=== PATIENT | female | born 1930 | race Hispanic/Latino ===

== ENCOUNTER 2016-09-08 21:49 | Observation (INO) | payer OTHER ==
[2016-09-08 21:50] VITALS: BMI 27.3
[2016-09-08 22:28] LABS: HEMOGLOBIN 13.5 gm/dL (12.0-16.0); MEAN CELL VOLUME 94.8 fL (80.0-105.0); MEAN CORPUSCULAR HEMOGLOBIN 31.9 pg (25.0-35.0); MEAN CORPUSCULAR HGB CONC 33.7 g/dl (31.0-37.0); MEAN PLATELET VOLUME 10.7 fl (7.0-11.0); RBC 4.23 10^6/uL (3.5-6.1); RED CELL DISTRIBUTION WIDTH 14.5 % (11.5-14.5); WHITE BLOOD COUNT 7.9 10^3/ul (4.5-11.0)
[2016-09-08 22:37] LABS: INR 1.05 (0.93-1.08); PARTIAL THROMBOPLASTIN TIME 26.2 Seconds (23.7-30.8); PROTHROMBIN TIME 11.3 Seconds (9.9-11.8)
[2016-09-08 22:40] LABS: ALB/GLOB RATIO 1.4 (1.1-1.8); ALBUMIN 4.2 g/dL (3.0-4.8); CALCIUM 9.3 mg/dL (8.4-10.5)
--- NOTE | 2016-09-08 22:53 | ED PDOC ---
Arrival/HPI - General Time Seen by Provider: 09/08/16 21:51 Historian: Patient - History of Present Illness Narrative History of Present Illness (Text): 09/08/16 21:59 An 86 year old female with a past medical history includes Hypertension, Hyperlipidemia, and Left Renal Artery Aneurysm (w/ Stents), left Cataract surgery, present to the emergency department with right sided/ mid-sternal chest pain. The patient states that she was sitting at home when she began experiencing right-sided chest tightness. She denies any symptoms of shortness of breath, abdominal pain, headache, chills, fever, nausea, vomiting, diarrhea, or any other complaints. Time/Duration: Prior to Arrival Symptom Onset: Gradual Symptom Course: Unchanged Quality: Tightness Activities at Onset: Rest, Light Context: Sitting, Home Past Medical History - Provider Review Nursing Documentation Reviewed: Yes - Infectious Disease Hx of Infectious Diseases: None - Cardiac Hx Hypertension: Yes - HEENT Hx Cataracts: Yes (left eye sx) - Endocrine/Metabolic Hx Hypothyroidism: Yes - Musculoskeletal/Rheumatological Hx Arthritis: Yes (b/l knees) - Gastrointestinal Hx Gastrointestinal Disorders: Yes (diverticulosis) - Genitourinary/Gynecological Other/Comment: Left Renal Stent - Psychiatric Hx Substance Use: No - Surgical History Other/Comment: Left renal stent Family/Social History - Physician Review Nursing Documentation Reviewed: Yes Family/Social History: No Known Family HX Smoking Status: Never Smoked Hx Alcohol Use: No Hx Substance Use: No Allergies/Home Meds Allergies/Adverse Reactions: Allergies Anesthetics - Amide Type Allergy (Verified 04/11/16 09:01) ANAPHYLAXIS Home Medications: Home Meds Medication Instructions Recorded Confirmed Aspirin [Lo-Dose Aspirin EC] 81 mg PO DIN 03/26/16 04/11/16 Cholecalciferol [Vitamin D 1000 IU] 5,000 unit PO DAILY 03/26/16 04/11/16 Levothyroxine [Synthroid] 50 mcg PO DAILY 03/26/16 04/11/16 Meloxicam [Mobic] 15 mg PO DAILY 03/26/16 04/11/16 Ubidecarenone [Co Q-10] 1,000 mg PO DAILY 03/26/16 04/11/16 traMADol [Ultram] 50 mg PO Q6 PRN 03/26/16 04/11/16 Review of Systems - Physician Review All systems were reviewed & negative as marked: Yes - Review of Systems Constitutional: absent: Fevers, Night Sweats Eyes: Normal ENT: Normal Respiratory: absent: SOB Cardiovascular: Chest Pain Gastrointestinal: absent: Abdominal Pain, Diarrhea, Nausea, Vomiting Genitourinary Female: Normal Musculoskeletal: Normal Skin: Normal Neurological: Normal. absent: Headache Hemo/Lymphatic: Normal Psychiatric: Normal Physical Exam Vital Signs Reviewed: Yes Vital Signs Temp Pulse Resp BP Pulse Ox 09/09/16 03:41 57 L 16 149/87 95 09/09/16 00:52 54 L 16 171/85 H 95 09/08/16 21:50 98.9 F 53 L 16 183/79 H 96 Temperature: Afebrile Blood Pressure: Hypertensive Pulse: Regular Respiratory Rate: Normal Appearance: Positive for: Well-Appearing, Non-Toxic Pain Distress: None Mental Status: Positive for: Alert and Oriented X 3 - Systems Exam Head: Present: Atraumatic, Normocephalic Pupils: Present: PERRL Extroacular Muscles: Present: EOMI Mouth: Present: Moist Mucous Membranes Neck: Present: Normal Range of Motion Respiratory/Chest: Present: Clear to Auscultation, Good Air Exchange. No: Respiratory Distress, Accessory Muscle Use Cardiovascular: Present: Regular Rate and Rhythm, Normal S1, S2. No: Murmurs Abdomen: Present: Normal Bowel Sounds. No: Tenderness, Distention, Peritoneal Signs Back: Present: Normal Inspection Upper Extremity: Present: Normal Inspection. No: Cyanosis, Edema Lower Extremity: Present: Normal Inspection. No: Edema Neurological: Present: GCS=15, CN II-XII Intact, Speech Normal Skin: Present: Warm, Dry, Normal Color. No: Rashes Psychiatric: Present: Alert, Oriented x 3, Normal Insight, Normal Concentration Medical Decision Making ED Course and Treatment: 09/08/16 22:05 Impression: An 86 year old male with a complaint of right sided/ mid-sternal chest tightness. Plan: -- EKG -- CXR -- Chest X-ray -- Aspirin -- Reassess and disposition Progress Notes: EKG: Ordered, reviewed, and independently interpreted the EKG. Rate : 58 BPM Rhythm : Sinus bradychardia Interpretation : No acute changes 09/08/16 23:15 Chest X-ray: No acute processes 09/08/16 23:55: Case discussed with Dr. Graff. Who is aware and agrees with plan. Accepts patient into his service. Patient will go to telemetry observation for chest pain. Requests Dr. Curry on consult. - Lab Interpretations Lab Results: 09/08/16 22:10 09/08/16 22:10 Lab Results 09/08/16 22:10: WBC 7.9 D, RBC 4.23, Hgb 13.5, Hct 40.1, MCV 94.8, MCH 31.9, MCHC 33.7, RDW 14.5, Plt Count 125, MPV 10.7 09/08/16 22:10: Sodium 140, Potassium 4.4, Chloride 101, Carbon Dioxide 32, Anion Gap 11, BUN 37 H, Creatinine 1.3, Est GFR ( Amer) 47, Est GFR (Non- Af Amer) 39, Random Glucose 143 H, Calcium 9.3, Total Bilirubin 1.3, AST 38, ALT 41, Alkaline Phosphatase 76, Lactate Dehydrogenase 696, Total Creatine Kinase 81, Troponin I 0.01 D, Total Protein 7.2, Albumin 4.2, Globulin 3.0, Albumin/Globulin Ratio 1.4 09/08/16 22:10: PT 11.3, INR 1.05, APTT 26.2 I have reviewed the lab results: Yes - RAD Interpretation Radiology Orders: 09/08/16 22:06 CHEST PORTABLE [RAD] Stat Transportation Maintenance Operator: ED Physician - EKG Interpretation Interpreted by ED Physician: Yes Type: 12 lead EKG - Medication Orders Current Medication Orders: Discontinued Medications Aspirin (Aspirin) 325 mg PO ONCE STA Stop: 09/08/16 22:08 Last Admin: 09/08/16 22:25 Dose: 325 mg - Scribe Statement Hermelinda Albarado training under Alix Rankin Provider Scribe Attestation: All medical record entries made by the Scribe were at my direction and personally dictated by me. I have reviewed the chart and agree that the record accurately reflects my personal performance of the history, physical exam, medical decision making, and the department course for this patient. I have also personally directed, reviewed, and agree with the discharge instructions and disposition. Disposition/Present on Arrival - Present on Arrival Any Indicators Present on Arrival: No History of DVT/PE: No History of Uncontrolled Diabetes: No Urinary Catheter: No History of Decub. Ulcer: No History Surgical Site Infection Following: None - Disposition Have Diagnosis and Disposition been Completed?: Yes Diagnosis: Chest pain Disposition: HOSPITALIZED Disposition Time: 00:06 Patient Plan: Observation Patient Problems: Current Active Problems Problem Status Onset Chest pain Acute Condition: STABLE
[2016-09-08 22:54] LABS: TROPONIN I 0.01 ng/mL
[2016-09-09 00:53] VITALS: O2SAT 95
[2016-09-09 03:42] VITALS: PULSE 57
[2016-09-09 05:09] VITALS: BP 147/85; RESP 18; TEMP 98.4
[2016-09-09 07:42] LABS: TROPONIN I 0.02 ng/mL
--- NOTE | 2016-09-09 12:00 | RAD ---
HISTORY: chest pain COMPARISON: Prior portable chest radiograph 04/11/2016. FINDINGS: LUNGS: No active pulmonary disease. PLEURA: No significant pleural effusion identified, no pneumothorax apparent. CARDIOVASCULAR: Mild cardiomegaly again suggested. OSSEOUS STRUCTURES: No significant abnormalities. VISUALIZED UPPER ABDOMEN: Normal. OTHER FINDINGS: None. IMPRESSION: No acute cardiopulmonary disease. Stable cardiomegaly noted.
--- NOTE | 2016-09-09 13:45 | CARD ---
APPROVED REPORT EKG Measurement Heart [id number] <Conclusion> Sinus bradycardia Otherwise normal ECG
--- NOTE | 2016-09-10 09:04 | CON ---
DATE: 09/09/2016 CARDIOLOGY CONSULTATION HISTORY OF PRESENT ILLNESS: The patient is an 86-year-old woman who presents with epigastric discomfort after a large spaghetti meal. The patient's past medical history is notable for hypercholesterolemia and hypertension. On her previous admission earlier this year, the patient suffered a non-STEMI, which she underwent cardiac catheterization, which showed a subtotally occluded small AV groove branch of the circumflex artery. In addition, her coronary disease was treated medically. In addition, she suffered from paroxysmal atrial fibrillation, which has been well controlled with low doses of amiodarone. SOCIAL HISTORY: The patient does not smoke. REVIEW OF SYSTEM: A 14 point review of systems was reviewed in detail. No cardiac symptomatology was elicited. PHYSICAL EXAMINATION: VITAL SIGNS: Blood pressure 147/85, heart rate is in the 60s, normal sinus rhythm. NECK: Negative JVD. LUNGS: Without rales. HEART: S1 and S2. EXTREMITIES: Without edema. LABORATORY DATA: EKG shows a left anterior hemiblock, normal sinus rhythm with no acute changes. Troponins are negative. IMPRESSION: 1. Epigastric discomfort. 2. No evidence for acute coronary syndrome. 3. History of coronary artery disease. 4. Hypertension. 5. Hypercholesterolemia. 6. History of paroxysmal atrial fibrillation treated successfully with p.o. amiodarone. Given these findings, the patient has no cardiac symptomatology. The patient's cardiac status is stable. From a cardiac perspective, the patient can be discharged. Jordan Curry MD
== END 2016-09-09 13:25 | disposition home or self-care (01) ==
LOC: ED 21:49 → ERH 09-09 00:06 → 2RNO 09-09 03:52
PROVIDERS: ADMIT Internal Medicine; ATTEND Internal Medicine
DX: R07.89 Other chest pain (principal); I10 Essential (primary) hypertension; I25.10 Atherosclerotic heart disease of native coronary artery without angina pectoris; E78.5 Hyperlipidemia, unspecified; E03.9 Hypothyroidism, unspecified; E78.00 Pure hypercholesterolemia, unspecified; I48.0 Paroxysmal atrial fibrillation; I25.2 Old myocardial infarction; Z98.42 Cataract extraction status, left eye
CPT/HCPCS: 36415; 71010; 80053; 82550; 83615; 84484; 85027; 85610; 85730; 93005; 99285; G0378

== ENCOUNTER 2017-05-28 04:58 | Inpatient (IN) | payer OTHER ==
[2017-05-28] MEDS ORDERED: Sodium Chloride 0.9% 500 ML IV STA (05:12)
[2017-05-28] MEDS ORDERED: Metoprolol 1 mg/ml Inj IVP STA (05:12)
--- NOTE | 2017-05-28 05:35 | ED PDOC ---
Arrival/HPI - General Chief Complaint: Chest Pain Time Seen by Provider: 05/28/17 05:10 Historian: Patient - History of Present Illness Narrative History of Present Illness (Text): 05/28/17 05:31 86 year old female, whose past medical history includes Hypertension, Hyperlipidemia, CAD, and Left Renal Artery Aneurysm (w/ Stents), left Cataract surgery, present to the emergency department complaining of being awaken from sleep by a heaviness across the bottom of her chest. Patient reports she had a mild heart attack last year, but they did not put a stent because the biggest blockage was only 15%. Patient denies any fever, chills, shortness of breath, abdominal pain, nausea, vomiting, diarrhea, urinary symptoms, back pain, neck pain, headache, dizziness, or any other complaints. Time/Duration: Prior to Arrival Symptom Onset: Sudden Symptom Course: Unchanged Activities at Onset: Light Context: Home Past Medical History - Provider Review Nursing Documentation Reviewed: Yes - Infectious Disease Hx of Infectious Diseases: None - Cardiac Hx Hypertension: Yes - Pulmonary Hx Respiratory Disorders: No - HEENT Hx Cataracts: Yes (left eye sx) - Renal Hx Renal Disorder: No - Endocrine/Metabolic Hx Hypothyroidism: Yes - Hematological/Oncological Hx Blood Disorders: No - Musculoskeletal/Rheumatological Hx Arthritis: Yes (b/l knees) - Gastrointestinal Hx Gastrointestinal Disorders: Yes (diverticulosis) - Genitourinary/Gynecological Other/Comment: Left Renal Stent - Psychiatric Hx Substance Use: No - Surgical History Other/Comment: Left renal stent Family/Social History - Physician Review Nursing Documentation Reviewed: Yes Family/Social History: No Known Family HX Smoking Status: Never Smoked Hx Alcohol Use: No Hx Substance Use: No Allergies/Home Meds Allergies/Adverse Reactions: Allergies Anesthetics - Amide Type Allergy (Verified 04/11/16 09:01) ANAPHYLAXIS Home Medications: Home Meds Medication Instructions Recorded Confirmed Aspirin [Lo-Dose Aspirin EC] 81 mg PO DIN 03/26/16 05/28/17 Levothyroxine [Synthroid] 50 mcg PO DAILY 03/26/16 05/28/17 Meloxicam [Mobic] 15 mg PO DAILY 03/26/16 05/28/17 Ubidecarenone [Co Q-10] 1,000 mg PO DAILY 03/26/16 05/28/17 traMADol [Ultram] 50 mg PO Q6 PRN 03/26/16 05/28/17 Cetirizine HCl [Zyrtec] 10 mg PO DAILY PRN 05/28/17 05/28/17 Metoprolol Tartrate [Lopressor] 12.5 mg PO ACBD 05/28/17 05/28/17 Valsartan/Hydrochlorothiazide 1 each PO ACBD 05/28/17 05/28/17 [Valsartan-Hctz 80-12.5 mg Tab] Review of Systems - Physician Review All systems were reviewed & negative as marked: Yes - Review of Systems Constitutional: absent: Fevers, Other Respiratory: absent: SOB Cardiovascular: Other (Chest Heaviness ) Gastrointestinal: absent: Abdominal Pain, Diarrhea, Nausea, Vomiting Genitourinary Female: absent: Dysuria, Frequency, Hematuria Musculoskeletal: absent: Back Pain, Neck Pain Neurological: absent: Headache, Dizziness Physical Exam Vital Signs Reviewed: Yes Vital Signs Temp Pulse Resp BP Pulse Ox 05/28/17 10:20 83 20 158/84 H 97 05/28/17 08:43 88 19 185/94 H 97 05/28/17 07:04 64 22 148/77 98 05/28/17 05:08 97.3 F L 57 L 18 121/67 97 Temperature: Afebrile Blood Pressure: Normal Pulse: Regular Respiratory Rate: Normal Appearance: Positive for: Well-Appearing, Non-Toxic, Comfortable Pain Distress: None Mental Status: Positive for: Alert and Oriented X 3 - Systems Exam Head: Present: Atraumatic, Normocephalic Pupils: Present: PERRL Extroacular Muscles: Present: EOMI Conjunctiva: Present: Normal Mouth: Present: Moist Mucous Membranes Neck: Present: Normal Range of Motion Respiratory/Chest: Present: Clear to Auscultation, Good Air Exchange. No: Respiratory Distress, Accessory Muscle Use Cardiovascular: Present: Regular Rate and Rhythm, Normal S1, S2. No: Murmurs Abdomen: No: Tenderness, Distention, Peritoneal Signs Back: Present: Normal Inspection Upper Extremity: Present: Normal Inspection. No: Cyanosis, Edema Lower Extremity: Present: Normal Inspection. No: Edema Neurological: Present: GCS=15, CN II-XII Intact, Speech Normal Skin: Present: Warm, Dry, Normal Color. No: Rashes Psychiatric: Present: Alert, Oriented x 3, Normal Insight, Normal Concentration Medical Decision Making ED Course and Treatment: 05/28/17 05:33 Impression: 86 year old female presents complaining of waking up from a heaviness across the bottom of chest. Plan: -- Labs -- EKG -- Chest X-Ray -- Aspirin, Lopressor, Nitrostat, IV fluids -- Reassess and disposition Prior Visits: Notes and results from previous visits were reviewed. On 09/08/16 patient came in complaining of right sided/ mid-sternal chest pain. Patient was admitted. Progress Notes: 05/28/17 06:20 CXR Impression: As read by me, NAD EKG: Ordered, reviewed, and independently interpreted the EKG. Rate : 55 BPM Rhythm : Sinus Bradycardia Interpretation : No ST-segment elevations or depressions, no T-wave inversions, normal intervals. Comparison : No previous EKG for comparison. 05/28/17 06:[address] Jayden Graff who is aware and agrees with the plan. Patient will be admitted to Dr. Joshua Graff with consult Dr. Humphrey. 05/28/17 07:00 Patient concerned pain is coming from stent located in inferrenal artery. Told patient pain is likely not chest pain, but instead flank pain and abdominal pain. Also informed patient will be ordering US for Abdomen and CT Angio Abdomen. - Lab Interpretations Lab Results: 05/28/17 05:43 05/28/17 05:43 Lab Results 05/28/17 05:43: Sodium 141, Potassium 4.1, Chloride 101, Carbon Dioxide 29, Anion Gap 15, BUN 29 H, Creatinine 1.0, Est GFR ( Amer) > 60, Est GFR ( Non-Af Amer) 53, Random Glucose 186 H, Calcium 9.0, Total Bilirubin 1.1, AST 35 , ALT 31, Alkaline Phosphatase 73, Lactate Dehydrogenase 619, Total Creatine Kinase 92, Troponin I 0.02, NT-Pro-B Natriuret Pep 465 H, Total Protein 6.7, Albumin 3.9, Globulin 2.8, Albumin/Globulin Ratio 1.4 05/28/17 05:43: PT 12.4, INR 1.08 05/28/17 05:43: WBC 8.7, RBC 4.04, Hgb 12.7, Hct 39.0, MCV 96.5, MCH 31.4, MCHC 32.6, RDW 12.5, Plt Count 165, MPV 10.4, Gran % 68.9 H, Lymph % (Auto) 24.3, Rich % (Auto) 5.0, Eos % (Auto) 1.5, Baso % (Auto) 0.3, Gran # 5.97, Lymph # ( Auto) 2.1, Rich # (Auto) 0.4, Eos # (Auto) 0.1, Baso # (Auto) 0.03 I have reviewed the lab results: Yes - RAD Interpretation Radiology Orders: 05/28/17 05:12 CHEST PORTABLE [RAD] Stat - EKG Interpretation Interpreted by ED Physician: Yes Type: 12 lead EKG - Medication Orders Current Medication Orders: Discontinued Medications Acetaminophen (Tylenol 325mg Tab) 650 mg PO Q6H PRN PRN Reason: Fever >100.4 F Last Admin: 05/29/17 05:51 Dose: 650 mg [facility] Pain/Vitals Document 05/29/17 05:51 CDE (Rec: 05/29/17 05:51 CDE [id number]) Pain Reassessment Is This A Pain ReAssessment? No Presence of Pain Presence of Pain No Vitals Temperature (97.6 F-99.6 F) 100.4 F Temperature Source Oral Acetaminophen (Tylenol 325mg Tab) 650 mg PO Q6 PRN PRN Reason: Pain, Mild (1-3) Last Admin: 05/29/17 14:24 Dose: 650 mg [facility] Pain/Vitals Document 05/29/17 14:24 (Rec: 05/29/17 14:25 [id number] Pain Reassessment Is This A Pain ReAssessment? No Sleep Is patient sleeping during reassessment? No Presence of Pain Presence of Pain Yes Pain Scale Used Pain Scale Used Numeric Location Pain Location Body Shed Boss Intensity 3 Scale Used Numeric Pain Behavior Guarding Re-Assess: [facility] Pain/Vitals Document 05/29/17 15:24 (Rec: 05/29/17 15:27 [id number][facility] Pain Reassessment Is This A Pain ReAssessment? Yes Sleep Is patient sleeping during reassessment? No Presence of Pain Presence of Pain Yes Pain Scale Used Pain Scale Used Numeric Location Pain Location Body Shed Boss Intensity 1 Scale Used Numeric Amiodarone HCl (Cordarone) 200 mg PO ONCE ONE Stop: 05/28/17 12:16 Last Admin: 05/28/17 12:23 Dose: Not Given Non-Admin Reason: Patient Refused Aspirin (Ecotrin) 81 mg PO DAILY [facility] Last Admin: 05/31/17 11:16 Dose: 81 mg Atorvastatin Calcium (Lipitor) 20 mg PO DIN [facility] Last Admin: 05/28/17 16:53 Dose: 20 mg Atorvastatin Calcium (Lipitor) 10 mg PO DIN [facility] Last Admin: 05/30/17 17:23 Dose: 10 mg Hydrochlorothiazide (Microzide) 12.5 mg PO ACBD [facility] Last Admin: 05/31/17 08:56 Dose: 12.5 mg Sodium Chloride (Sodium Chloride 0.9%) 500 mls @ 999 mls/hr IV .Q31M STA Stop: 05/28/17 05:42 Last Admin: 05/28/17 06:09 Dose: 999 mls/hr eMAR Start Stop Document 05/28/17 06:09 SS (Rec: 05/28/17 06:09 SS [facility]-[id number]) Intravenous Solution Start Date 05/28/17 Start Time 06:09 End Date 05/28/17 End time 06:39 Total Infusion Time 30 Ceftriaxone Sodium (Rocephin 1 Gram Ivpb) 1 gm in 100 mls @ 100 mls/hr IV DAILY [facility] PRN Reason: Protocol Stop: 06/01/17 10:59 Last Admin: 05/31/17 11:17 Dose: 100 mls/hr eMAR Start Stop Document 05/31/17 11:17 MV (Rec: 05/31/17 11:17 [email or web address]) Intravenous Solution Start Date 05/31/17 Start Time 11:17 Sodium Chloride (Sodium Chloride 0.9%) 1,000 mls @ 100 mls/hr IV .Q10H [facility] Last Admin: 05/30/17 13:30 Dose: 100 mls/hr eMAR Start Stop Document 05/30/17 13:30 KL (Rec: 05/30/17 13:30 KL [id number]) Intravenous Solution Start Date 05/30/17 Start Time 13:30 Lactobacillus Acidophilus (Bacid Acidophilus) 1 cap PO BID [facility] Last Admin: 05/31/17 11:16 Dose: 1 cap Levothyroxine Sodium (Synthroid) 50 mcg PO DAILY [facility] Last Admin: 05/31/17 11:16 Dose: 50 mcg Lisinopril (Zestril) 5 mg PO DAILY [facility] Last Admin: 05/28/17 12:22 Dose: Not Given Non-Admin Reason: Patient Refused Losartan Potassium (Cozaar) 50 mg PO ACBD [facility] Last Admin: 05/31/17 08:57 Dose: 50 mg Metoprolol Tartrate (Lopressor) 5 mg IVP STAT STA Stop: 05/28/17 05:13 Last Admin: 05/28/17 06:27 Dose: Metoprolol Tartrate (Lopressor) 25 mg PO ONCE ONE Stop: 05/28/17 12:04 Last Admin: 05/28/17 12:20 Dose: 12.5 mg Comments: patient states she only takes 12.5mg 2x/day; refuses 25mg tablet of lopressor and requests 12.5mg and administered MAR Pulse and Blood Pressure Document 05/28/17 12:20 AAMIR (Rec: 05/28/17 12:21 AAMIR [id number]) Pulse Pulse Rate (60-90) 94 Blood Pressure Blood Pressure (100/60-150/90) 167/89 Metoprol[facility]) [facility] Last Admin: 05/31/17 08:56 Dose: 12.5 mg MAR Pulse and Blood Pressure Document 05/31/17 08:56 MV (Rec: 05/31/17 08:57 [email or web address]) Pulse Pulse Rate (60-90) 73 Blood Pressure Blood Pressure (100/60-150/90) 156/76 Morphine Sulfate (Morphine) 2 mg IVP STAT STA Stop: 05/28/17 05:50 Last Admin: 05/28/17 06:09 Dose: 2 mg MAR Pain Assessment Document 05/28/17 06:09 SS (Rec: 05/28/17 06:09 [id number][facility] Pain Reassessment Is this a pain reassessment? No Sleep Is patient sleeping during reassessment? No Presence of Pain Presence of Pain Yes Pain Scale Used Pain Scale Used Numeric Location Left, Right or Bilateral Left Pain Location Body Site Chest Description Description Constant Pain Behavior Moaning Restlessness IVP Administration Document 05/28/17 06:09 SS (Rec: 05/28/17 06:09 [id number][facility] Charges for Administration # of IVP Administrations 1 Morphine Sulfate (Morphine) 2 mg IVP STAT STA Stop: 05/28/17 06:14 Last Admin: 05/28/17 06:27 Dose: 2 mg MAR Pain Assessment Document 05/28/17 06:27 SS (Rec: 05/28/17 06:27 [id number]) Pain Reassessment Is this a pain reassessment? Yes Sleep Is patient sleeping during reassessment? No Presence of Pain Presence of Pain Yes Pain Scale Used Pain Scale Used Numeric Location Left, Right or Bilateral Left Pain Location Body Site Chest Description Description Pressure IVP Administration Document 05/28/17 06:27 SS (Rec: 05/28/17 06:27 SS [id number]) Charges for Administration # of IVP Administrations 1 Morphine Sulfate (Morphine) 4 mg IVP STAT STA Stop: 05/28/17 06:48 Last Admin: 05/28/17 07:00 Dose: 4 mg MAR Pain Assessment Document 05/28/17 07:00 SS (Rec: 05/28/17 07:00 SS [id number]) Pain Reassessment Is this a pain reassessment? Yes Sleep Is patient sleeping during reassessment? No Presence of Pain Presence of Pain Yes Pain Scale Used Pain Scale Used Numeric Location Left, Right or Bilateral Left Pain Location Body Site Chest Description Description Pressure Intensity of Pain at present 8 IVP Administration Document 05/28/17 07:00 SS (Rec: 05/28/17 07:00 [id number]) Charges for Administration # of IVP Administrations 1 Ondansetron HCl (Zofran Inj) 4 mg IVP STAT STA Stop: 05/28/17 05:50 Last Admin: 05/28/17 06:06 Dose: 4 mg IVP Administration Document 05/28/17 06:06 SS (Rec: 05/28/17 06:08 SS [id number]) Charges for Administration # of IVP Administrations 1 Ondansetron HCl (Zofran Inj) 4 mg IVP Q6H PRN PRN Reason: Nausea/Vomiting Pantoprazole Sodium (Protonix Ec Tab) 40 mg PO 0600 FLORIDALMA Pantoprazole Sodium (Protonix Inj) 40 mg IVP STAT STA Stop: 05/28/17 11:51 Last Admin: 05/28/17 12:14 Dose: 40 mg IVP Administration Document 05/28/17 12:14 AAMIR (Rec: 05/28/17 12:14 AAMIR [id number]) Charges for Administration # of IVP Administrations 1 Pantoprazole Sodium (Protonix Inj) 40 mg IVP DAILY [facility] Last Admin: 05/29/17 10:46 Dose: 40 mg IVP Administration Document 05/29/17 10:46 ENRRIQUE (Rec: 05/29/17 10:46 ENRRIQUE [id number]) Charges for Administration # of IVP Administrations 1 Pantoprazole Sodium (Protonix Ec Tab) 40 mg PO ACB [facility] Last Admin: 05/31/17 08:57 Dose: 40 mg Pneumococcal Polyvalent Vaccine (Pneumovax 23 Vaccine) 0.5 ml IM .ONCE ONE Stop: 05/28/17 13:30 Last Admin: 05/28/17 13:39 Dose: Immunization Registry Document 05/28/17 13:39 AAMIR (Rec: 05/28/17 13:39 AAMIR [id number]) Immunization Registry Consent Date 05/28/17 Potassium Chloride (K-Dur 20 Meq Er Tab) 40 meq PO ONCE ONE Stop: 05/29/17 09:05 Last Admin: 05/29/17 10:45 Dose: 40 meq Simethicone (Mylicon Liq) 40 mg PO QID PRN PRN Reason: abd.pain Stop: 05/29/17 23:59 Last Admin: 05/29/17 13:56 Dose: 1 dose Tramadol HCl (Ultram) 50 mg PO TID [facility] Last Admin: 05/31/17 09:00 Dose: 50 mg MAR Pain Assessment Document 05/31/17 09:00 MV (Rec: 05/31/17 09:01 MV [id number]) Pain Reassessment Is this a pain reassessment? No Sleep Is patient sleeping during reassessment? Yes Pain Scale Used Pain Scale Used Numeric Location Left, Right or Bilateral Bilateral Pain Location Body Site Knee - Scribe Statement The provider has reviewed the documentation as recorded by the Jacob Hogue Provider Scribe Attestation: All medical record entries made by the Jacob were at my direction and personally dictated by me. I have reviewed the chart and agree that the record accurately reflects my personal performance of the history, physical exam, medical decision making, and the department course for this patient. I have also personally directed, reviewed, and agree with the discharge instructions and disposition. Disposition/Present on Arrival - Present on Arrival Any Indicators Present on Arrival: No History of DVT/PE: No History of Uncontrolled Diabetes: No Urinary Catheter: No History of Decub. Ulcer: No History Surgical Site Infection Following: None - Disposition Have Diagnosis and Disposition been Completed?: Yes Diagnosis: Chest pain Disposition: HOSPITALIZED Disposition Time: 23:00 Patient Plan: Admission, Telemetry Condition: GOOD
[2017-05-28 05:59] LABS: BASO # 0.03 K/mm3 (0.0-2.0); BASO % 0.3 % (0.0-3.0); EOS # 0.1 (0.0-0.7); EOS % 1.5 % (1.5-5.0); GRAN # 5.97 (1.4-6.5); GRAN % 68.9 % (50.0-68.0); HEMOGLOBIN 12.7 g/dL (12.0-16.0); LYMPH # 2.1 (1.2-3.4); LYMPH % 24.3 % (22.0-35.0); MEAN CELL VOLUME 96.5 fl (80.0-105.0); MEAN CORPUSCULAR HEMOGLOBIN 31.4 pg (25.0-35.0); MEAN CORPUSCULAR HGB CONC 32.6 g/dl (31.0-37.0); MEAN PLATELET VOLUME 10.4 fl (7.0-11.0); MONO # 0.4 (0.1-0.6); RBC 4.04 10^6/uL (3.5-6.1); RED CELL DISTRIBUTION WIDTH 12.5 % (11.5-14.5); WHITE BLOOD COUNT 8.7 10^3/ul (4.5-11.0)
[2017-05-28 06:10] LABS: PROTHROMBIN TIME 12.4 SECONDS (9.4-12.5)
[2017-05-28 06:11] LABS: INR 1.08 (0.93-1.08)
[2017-05-28 06:24] LABS: ALB/GLOB RATIO 1.4 (1.1-1.8); ALBUMIN 3.9 g/dL (3.0-4.8); ALT/SGPT 31 U/L (7-56); AST/SGOT 35 U/L (14-36); BLOOD UREA NITROGEN 29 mg/dL (7-21); GFR AFRICAN-AMERICAN > 60; GFR NON-AFRICAN AMERICAN 53
[2017-05-28 06:29] LABS: B-TYPE NATRIURETIC PEPTIDE 465 pg/mL (0-450); TROPONIN I 0.02 ng/mL
--- NOTE | 2017-05-28 08:37 | RAD ---
HISTORY: Chest pain COMPARISON: 09/08/2016. FINDINGS: LUNGS: The lungs are hyperinflated and there is peribronchial thickening with chronic changes in both lungs. No focal consolidation. PLEURA: No significant pleural effusion identified, no pneumothorax apparent. CARDIOVASCULAR: The heart is normal in size. Atherosclerotic aortic arch calcifications are present. OSSEOUS STRUCTURES: No significant abnormalities. VISUALIZED UPPER ABDOMEN: Normal. OTHER FINDINGS: None. IMPRESSION: No active pulmonary disease. COPD.
--- NOTE | 2017-05-28 08:47 | US ---
HISTORY: Questionable gallstone COMPARISON: Correlation also made with concurrent CTA of the chest which imaged the upper abdomen TECHNIQUE: Sonographic evaluation of the abdomen. FINDINGS: LIVER: The liver measures nearly 17 cm in CC dimension. Liver demonstrates smooth contour and normal echogenicity of the liver parenchyma. . There is an approximately 2 x 1.7 x 2.0 cm low-attenuation apparent cyst anterior aspect left lobe liver. . Smaller approximately 8 mm presumed cyst superior aspect left lobe liver near the diaphragmatic dome not visualized. . No intrahepatic bile duct dilatation. GALLBLADDER: The gallbladder is moderately distended. Multiple intraluminal gallbladder calculi. COMMON BILE DUCT: Measures 5.6 mm. No stones. No dilatation. PANCREAS: Unremarkable as visualized. No mass. No ductal dilatation. RIGHT KIDNEY: Measures 11.0 x 4.4 x 5.8cm. Normal echogenicity. No calculus, mass, or hydronephrosis. LEFT KIDNEY: Measures 9.6 x 5.2 x 5.3cm. Normal echogenicity. No mass, or hydronephrosis. 1 cm nonobstructing calculus lower pole left kidney SPLEEN: Normal in size and contour. No mass. AORTA: No aneurysmal dilatation. IVC: Unremarkable. OTHER FINDINGS: None. IMPRESSION: Hepatic cysts as described. 1 cm nonobstructing calculus lower pole left kidney.
--- NOTE | 2017-05-28 09:54 | CT ---
PROCEDURE: CT Chest, Abdomen and Pelvis with intravenous contrast HISTORY: Infrarenal stent, abdominal pain COMPARISON: No prior study available for comparison. TECHNIQUE: IV dose administered: 150 cc Omnipaque 350 contrast material Radiation dose: Total exam DLP = 796.31 mGy-cm. This CT exam was performed using one or more of the following dose reduction techniques: Automated exposure control, adjustment of the mA and/or kV according to patient size, and/or use of iterative reconstruction technique. FINDINGS: CT CHEST WITH CONTRAST: LUNGS: No acute infiltrates. There are areas of atelectasis/ scarring changes both lower lung rosales, left greater than right. Localized area of tree-in-bud opacity seen in the right lower lobe. No acute consolidation. Mild biapical pleural thickening right greater than left. . MEDIASTINUM: Heart is enlarged. There is mild dilatation of the ascending thoracic aorta which measures approximately 4.0 cm. Descending thoracic aorta measures approximately 2.8 cm. Pulmonary trunk measures approximately 3.5 cm. There is a small hiatal hernia with wall thickening of the distal esophagus which could be due to protrusion gastric mucosa. Esophagitis or other intrinsic/invasive wall lesion including esophageal carcinoma not completely excluded. Followup endoscopy may be prudent. LYMPH NODES: There are a few small nonspecific mediastinal and hilar lymph nodes. PLEURA: No effusion or pneumothorax. BONES: Multilevel degenerative spondylosis of the thoracic spine. No acute compression fractures no retropulsed fragments. Chronic appearing endplate deformities of the T7 and T12 segments. OTHER FINDINGS: None. CT ABDOMEN AND PELVIS: LIVER: The liver exhibits normal size measuring approximately 14 cm in CC dimension. There is a any elliptical shaped approximately 2 cm x 1.3 cm cyst left lobe liver at anterior aspect left lobe liver bordering the fissure. In addition, there is a small approximately 8 mm elliptical shaped low-attenuation focus superior aspect left lobe liver bordering the diaphragmatic surface also felt to represent a cyst. GALLBLADDER AND BILE DUCTS: Gallbladder is moderately distended. Multiple intraluminal gallbladder calculi. PANCREAS: The pancreas appears slightly atrophic and fatty replaced. SPLEEN: Questionable calcified aneurysmal dilatation of the splenic artery ADRENALS: No obvious right adrenal lesion. Questionable enlarged left adrenal gland. KIDNEYS AND URETERS: There is an approximately 6.3 mm elliptical shaped nonobstructing calculus lower pole left kidney. 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 . The metallic density results in significant streak and beam hardening artifact obscuring surrounding fine detail. Significant streak and beam hardening artifact BOWEL: Evaluation of the bowel is limited due to the lack of oral contrast material. Stomach is incompletely distended. Visualized loops of small bowel exhibit normal contour and caliber. No evidence of acute mechanical small bowel obstruction. Extensive diverticulosis. No definitive radiographic evidence of acute diverticulitis. There is a large amount of stool within the rectum consistent with significant constipation/ fecal impaction. APPENDIX: Normal-appearing appendix best seen on coronal image number [id number]. PERITONEUM: Unremarkable. No free fluid. No free air. LYMPH NODES: Unremarkable. No enlarged lymph nodes. BLADDER: Urinary bladder incompletely distended. No evidence of intraluminal urinary bladder calculi. REPRODUCTIVE: Unremarkable. BONES: Multilevel degenerative spondylosis of the lumbar spine slight anterior subluxation L4 over L5. OTHER FINDINGS: None. IMPRESSION: Cardiomegaly prominence of the pulmonary trunk. Bibasilar atelectasis/scarring of. Small localized area tree-in-bud opacity right lower lobe laterally. Biapical pleural thickening right greater than left. 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 Hepatic cysts. . Nonobstructing calculus lower pole left kidney. Cholelithiasis. Small hiatal hernia with wall thickening of the distal esophagus likely due to protrusion of gastric mucosa however esophagitis or other intrinsic/invasive wall lesion not excluded. Diverticulosis with no radiographic evidence of acute diverticulitis. Fecal impaction. Questionable enlarged left adrenal gland.
[2017-05-28] MEDS ORDERED: Simethicone 40 mg/0.6 ml Liquid (30 ml) PO PRN (11:52)
[2017-05-28 12:24] LABS: TROPONIN I 0.03 ng/mL
[2017-05-28 13:28] VITALS: BMI 26.6
[2017-05-28] MEDS ORDERED: Pneumococcal 23-Valent Vaccine IM ONE (13:29)
[2017-05-28] MEDS ORDERED: Levothyroxine 100 MCG TAB PO SCH (18:00)
[2017-05-28] MEDS: cefTRIAXone 1 gm 1 GM/100 ML BAG IV SCH (18:40)
[2017-05-28] MEDS: Sodium Chloride 0.9% 1,000 ML IV SCH (18:41)
[2017-05-28 20:29] LABS: TROPONIN I 0.1 ng/mL
--- NOTE | 2017-05-28 21:33 | CARD ---
APPROVED REPORT EKG Measurement Heart [id number] <Conclusion> Sinus bradycardia Otherwise normal ECG
--- NOTE | 2017-05-28 23:30 | CON ---
DATE: 05/28/2017 REASON FOR CONSULTATION: Cardiac evaluation, admitted with chest pain. BRIEF CLINICAL HISTORY: This is an 86-year-old female with past medical history of significant for nonobstructive coronary artery disease; paroxysmal atrial fibrillation, status post cardiac catheterization by Dr. Curry on found to be nonobstructive coronary artery disease. The patient initially followed by Dr. 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 with pain occurred on the lower chest and then later on the patient found to be spread all over the abdomen, and started dry heave and nausea. Denies any further episode of chest pain. The patient had normal meal last night, but was feeling two days' abdominal pain as well. PAST HISTORY: Significant for questionable history of non-STEMI; history of cardiac catheterization and on 04/2016, medical treatment recommended; history of paroxysmal atrial fibrillation in 08/2016. PREVIOUS CARDIAC WORKUP: Patient had a cardiac catheterization on 03/27/2016, done by Dr. Curry that revealed no gradient across the aortic valve. Left ventriculogram showed ejection fraction of 65% done in WALLER projection. No aortic insufficiency noted. Coronary angiogram revealed dominant right coronary artery without any critical stenosis. Left main selectively cannulized with normal limit. LAD diagonal revealed a minimal intimal irregularity without any critical stenosis. Circumflex and obtuse marginal branch revealed diffuse arteriosclerosis without critical disease. A small AV groove branch was subtotally occluded, this may be responsible for elevated troponin versus too small for intervention. Medical treatment recommended dated 03/26/2016. Then, patient admitted with paroxysmal atrial fibrillation. Other cardiac workup shows the carotid artery ultrasound dated 04/12/2016, shows bilateral ICA 20 to 39 % stenosis. Patient had also echocardiography done on 04/12/2016, that revealed normal LV function, ejection fraction within the normal limits, no segmental wall motion abnormality, RV systolic pressure of 40, mild mitral regurgitation. REVIEW OF SYSTEMS: As per HPI. CURRENT MEDICATIONS: Patient at home was taking vitamin D, aspirin, amiodarone, tramadol, simvastatin, metoprolol 25 b.i.d., meloxicam, lisinopril 5 mg, 50 mg daily. PHYSICAL EXAMINATION: VITAL SIGNS: Temperature afebrile, heart rate 57, blood pressure 158/84. HEENT: PERRLA, intact. NECK: Supple. No carotid bruit or thyromegaly. CHEST: Clear to auscultation. HEART: S1 and S2, regular. ABDOMEN: Soft. EXTREMITIES: Clubbing and cyanosis negative. LABORATORY DATA: Blood workup as follows: WBC 8.7, hemoglobin 12.3, hematocrit 39, and platelet count 10.4. Chemistry shows sodium , chloride 101, carbon dioxide 29, anion gap of 15. BUN 29, creatinine 1. Troponin is 0.02. EKG shows normal sinus rhythm, acute ST-T wave changes noted. IMPRESSION: Chest pain and abdominal pain, most likely this is secondary to abdominal pain; history of coronary artery disease, nonobstructive with small AV groove branch occluded that was very small for intervention; history of cardiac catheterization on 03/[address] Curry. The patient used to follow with Dr. Curry because of the insurance status. 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 Curry, so patient is followed now me. He does not appear to have acute coronary syndrome, most likely the GI symptoms; history of paroxysmal atrial fibrillation; history of obesity; history of hyperthyroidism. RECOMMENDATION: We will resume medication. Follow up CPK and troponin. Suggest ultrasound of the abdomen, CAT scan of the abdomen. Echo to assess LV function, lipid profile, TSH, monitor in telemetry. We will follow with you. Thank you Dr. Graff for providing me the opportunity in taking care of Delores Gaspar. Kiara Humphrey MD
[2017-05-29] MEDS: Sodium Chloride 0.9% 1,000 ML IV SCH ×2 (05:50→16:34)
[2017-05-29] MEDS ORDERED: Pantoprazole 40 mg EC Tab PO SCH (06:00)
[2017-05-29 07:13] LABS: BASO # 0.02 K/mm3 (0.0-2.0); BASO % 0.2 % (0.0-3.0); EOS % 0.4 % (1.5-5.0); GRAN # 8.94 (1.4-6.5); GRAN % 78.7 % (50.0-68.0); HEMOGLOBIN 12.5 g/dL (12.0-16.0); LYMPH # 1.1 (1.2-3.4); MEAN CELL VOLUME 95.6 fl (80.0-105.0); MEAN CORPUSCULAR HEMOGLOBIN 32.1 pg (25.0-35.0); MEAN CORPUSCULAR HGB CONC 33.5 g/dl (31.0-37.0); MEAN PLATELET VOLUME 9.9 fl (7.0-11.0); MONO # 1.2 (0.1-0.6); MONO % 10.7 % (1.0-6.0); RBC 3.9 10^6/uL (3.5-6.1); RED CELL DISTRIBUTION WIDTH 12.7 % (11.5-14.5); WHITE BLOOD COUNT 11.4 10^3/ul (4.5-11.0)
--- NOTE | 2017-05-29 07:36 | CP.PCM.PN ---
Subjective - Date & Time of Evaluation Date of Evaluation: 05/29/17 Time of Evaluation: 07:00 - Subjective Subjective: Seen and examined by me and Dr. Humphrey Reason for consult and follow up: Cardiac evaluation,chest pain, cardiac cath 2016- non-obstructive coronary artery disease, Paroxysmal atrial fibrillation, questionable history of non- STEMI, history of obesity,history of hyperthyroidism Subjective: denies chest pain, denies shortness of breath, feeling better Objective - Vital Signs/Intake and Output Vital Signs (last 24 hours): Temp Pulse Resp BP Pulse Ox 100.4 F H 67 18 155/76 H 94 L 05/29/17 06:00 05/29/17 06:00 05/29/17 06:00 05/29/17 06:00 05/29/17 06:00 Intake and Output: 05/29/17 05/29/17 06:59 18:59 Intake Total 1320 Output Total 200 Balance 1120 - Medications Medications: Current Medications Acetaminophen (Tylenol 325mg Tab) 650 mg PO Q6H PRN PRN Reason: Fever >100.4 F Last Admin: 05/29/17 05:51 Dose: 650 mg Aspirin (Ecotrin) 81 mg PO DAILY [facility] Atorvastatin Calcium (Lipitor) 10 mg PO DIN [facility] Hydrochlorothiazide (Microzide) 12.5 mg PO ACBD [facility] Last Admin: 05/28/17 16:54 Dose: 12.5 mg Ceftriaxone Sodium (Rocephin 1 Gram Ivpb) 1 gm in 100 mls @ 100 mls/hr IV DAILY [facility] PRN Reason: Protocol Last Admin: 05/28/17 18:40 Dose: 100 mls/hr Sodium Chloride (Sodium Chloride 0.9%) 1,000 mls @ 100 mls/hr IV .Q10H [facility] Last Admin: 05/29/17 05:50 Dose: 100 mls/hr Levothyroxine Sodium (Synthroid) 50 mcg PO DAILY [facility] Losartan Potassium (Cozaar) 50 mg PO ACBD [facility] Last Admin: 05/28/17 16:53 Dose: 50 mg Metoprolol Tartrate (Lopressor) 12.5 mg PO BRKDIN [facility] Last Admin: 05/28/17 16:53 Dose: 12.5 mg Ondansetron HCl (Zofran Inj) 4 mg IVP Q6H PRN PRN Reason: Nausea/Vomiting Pantoprazole Sodium (Protonix Inj) 40 mg IVP DAILY [facility] Last Admin: 05/28/17 18:05 Dose: Not Given Simethicone (Mylicon Liq) 40 mg PO QID PRN PRN Reason: abd.pain Stop: 05/29/17 23:59 Tramadol HCl (Ultram) 50 mg PO TID [facility] Last Admin: 05/28/17 23:13 Dose: 50 mg - Labs Labs: 05/29/17 07:00 PT 12.4 SECONDS (9.4-12.5) 05/28/17 05:43 INR 1.08 (0.93-1.08) 05/28/17 05:43 - Constitutional Appears: No Acute Distress - Head Exam Head Exam: NORMAL INSPECTION - Eye Exam Eye Exam: Normal appearance - ENT Exam ENT Exam: Mucous Membranes Moist, Normal Exam - Respiratory Exam Respiratory Exam: Clear to Ausculation Bilateral, NORMAL BREATHING PATTERN - Cardiovascular Exam Cardiovascular Exam: Irregular Rhythm, +S1, +S2 - GI/Abdominal Exam GI & Abdominal Exam: Soft, Normal Bowel Sounds - Extremities Exam Extremities Exam: Full ROM, Normal Capillary Refill - Neurological Exam Neurological Exam: Alert, Awake, Oriented x3 - Psychiatric Exam Psychiatric exam: Normal Affect, Normal Mood - Skin Skin Exam: Dry, Intact, Normal Color, Warm Assessment and Plan - Assessment and Plan (Free Text) Assessment: IMPRESSION: Chest pain most likely secondary to abdominal pain. cardiac cath 2016- non-obstructive coronary artery disease, Paroxysmal atrial fibrillation, questionable history of non- STEMI, history of obesity,history of hyperthyroidism. Former patient of Dr. Curry however due to insurance issues/ coverage ( Dr. Curry does not participate in her insurance) switch to Dr. Humphrey. Plan: EKG from yesterday- sinus bradycardia at 55/min Troponin negative x 3 Denies chest pain Ultrasound of abdomen showed moderately distended gallbladder, multiple intraluminal gallbladder calculi, left kidney 1 cm non obstructing calculus lower pole. ECHO pending final result, will follow Continue current medication Continue current treatment Will follow up Plan and treatment discussed with Dr. Humphrey
[2017-05-29 07:40] LABS: ALB/GLOB RATIO 1.3 (1.1-1.8); ALBUMIN 3.5 g/dL (3.0-4.8); ALT/SGPT 30 U/L (7-56); AMYLASE 39 U/L (35-125); AST/SGOT 31 U/L (14-36); BLOOD UREA NITROGEN 19 mg/dL (7-21); CALCIUM 8.5 mg/dL (8.4-10.5); GFR AFRICAN-AMERICAN > 60; GFR NON-AFRICAN AMERICAN 60; HDL CHOLESTEROL 51 mg/dL (29-60)
[2017-05-29 07:47] LABS: LDL CHOLESTEROL 63 mg/dL (0-129)
[2017-05-29] MEDS ORDERED: Potassium Chloride 20 mEq ER Tab PO ONE (09:04)
[2017-05-29] MEDS: Levothyroxine 50 MCG TAB PO SCH (10:45)
[2017-05-29] MEDS: cefTRIAXone 1 gm 1 GM/100 ML BAG IV SCH (10:47)
--- NOTE | 2017-05-29 17:06 | CARD ---
APPROVED REPORT EXAM: Two-dimensional and M-mode echocardiogram with Doppler and color Doppler. INDICATION Chest Pain 2D DIMENSIONS Left Atrium (2D)4.1 (1.6-4.0cm)IVSd1.3 (0.7-1.1cm) LVDd3.9 (3.9-5.9cm)PWd1.4 (0.7-1.1cm) LVDs2.7 (2.5-4.0cm)FS (%) 31.0 % LVEF (%)59.3 (>50%) M-Mode DIMENSIONS Aortic Root2.90 (2.2-3.7cm)Aortic Cusp Exc.1.30 (1.5-2.0cm) Aortic Valve AoV Peak Lohfmjvs382.0cm/Michelle Peak GR.7mmHg Mitral Valve MV E Fueudunw00.5cm/sMV A Hbcernji01.7cm/sE/A ratio0.7 TDI E/Lateral E'0.0E/Medial E'0.0 Tricuspid Valve TR Peak [id number]/sRAP [id number] Peak Gr.17mmHg [id number] LEFT VENTRICLE The left ventricle is normal size. There is mild concentric left ventricular hypertrophy. The left ventricular function is normal.EF-55-60% There is normal LV segmental wall motion. Transmitral Doppler flow pattern is Grade III-reversible restrictive diastolic dysfunction. No left ventricle thrombus noted on this study. There is no ventricular septal defect visualized. There is no left ventricular aneurysm. There is no mass noted in the left ventricle. ATRIA The left atrium is borderline dilated. The right atrium size is normal. The interatrial septum is intact with no evidence for an atrial septal defect. AORTIC VALVE The aortic valve is calcified but opens well. There is trace aortic regurgitation. Aortic Sclerosis Vs Mild As There is no aortic valvular vegetation. MITRAL VALVE The mitral valve is thickened but opens well. Mitral annular calcification is mild. Mitral regurgitation is mild. There is no mitral valve stenosis. There is no evidence of mitral valve prolapse. TRICUSPID VALVE The tricuspid valve leaflets are thickened , but open well. There is trace tricuspid regurgitation.RVSP-27 mm of hg. There is no tricuspid valve stenosis. There is no tricuspid valve prolapse or vegetation. PULMONIC VALVE The pulmonic valve is borderline thickened. There is tracetrace pulmonic valvular regurgitation. There is no pulmonic valvular stenosis. GREAT VESSELS The aortic root is normal in size. The ascending aorta is normal in size. The pulmonary artery is normal. The IVC is normal in size and collapses >50% with inspiration. PERICARDIAL EFFUSION There is no pleural effusion. There is no pericardial effusion. <Conclusion> The left ventricle is normal size. There is mild concentric left ventricular hypertrophy. The left ventricular function is normal.EF-55-60% There is trace aortic regurgitation. Aortic Sclerosis Vs Mild As Mitral regurgitation is mild. There is trace tricuspid regurgitation.RVSP-27 mm of hg. There is tracetrace pulmonic valvular regurgitation. The IVC is normal in size and collapses >50% with inspiration. There is no pericardial effusion.
--- NOTE | 2017-05-29 17:16 | HP ---
CHIEF COMPLAINT: Sudden onset abdominal pain awaking the patient from her sleep. HISTORY OF PRESENT ILLNESS: This is an 86-year-old woman with a history of hypertension and coronary artery disease, who was well the day prior to admission and did not eat anything different, unusual or odd, went to bed that night. She woke in the trial mgr hours with intense pain across the upper and mid abdomen from right to left, all the way across with nausea and vomiting. She waited hoping her symptoms will subside, they did not, prompting her to call for ambulance and come to the emergency room. She was nauseous and vomiting and treated with some fluids and antiemetics. PAST MEDICAL HISTORY: Significant for hypertension, hypothyroidism, and hyperlipidemia. She was admitted to [facility] in 03/2016 with new-onset AFib and positive troponins and had a cardiac workup including catheterization by Dr. Jordan Curry revealing single vessel disease in small distal coronary artery, not amenable to stenting. Since then, she has been home and well. 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 Humphrey. 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 ALLERGIES: SHE SAYS SHE IS ALLERGIC TO SOME ANESTHESIA AGENTS USED DURING CHILDBIRTH MANY YEARS AGO, BUT NO OTHER ALLERGIES TO MEDICINES OR ANTIBIOTICS. CURRENT MEDICATIONS AT HOME: Include Levoxyl 50 mcg, metoprolol 12.5 mg b.i.d., aspirin 81 daily, valsartan and hydrochlorothiazide 80 per 12.5 b.i.d., meloxicam 15 daily, simvastatin 40 mg daily, tramadol, probiotics, and Zyrtec. SOCIAL HISTORY: She does not smoke and does not drink. She is a retired nurse from [employer]. PHYSICAL EXAMINATION: GENERAL: The patient was seen in room 373, bed 2 this at noontime with her daughter who is also a registered nurse at the bedside. She is awake, alert, clear, appropriate, answers questions clearly. Mental status, voice, and motor strength are all normal. Emesis basin is in bed with her, at her side, but the nausea has subsided since admission. She appears clinically dry. HEENT: Conjunctivae are pink. Mucous membranes are dry. Noticeable is a puffiness surrounding an erythema of the left check under the eye, down to the mouth and at corner of the mouth and angle of jaws. She denies recent injury, trauma, fall, or ecchymosis. The area is warm to touch, compatible with a cellulitis/erysipelas. NECK: Supple without masses. Thyroid is not palpable. LUNGS: Have good aeration, in the right and left. HEART: Regular, not tachycardic. ABDOMEN: Soft, essentially nontender, there is some perhaps slight residual, mid epigastric and left-sided tenderness on deep palpation. EXTREMITIES: Show no edema. IMPRESSION: 1. I suspect the symptoms to be mostly of gastrointestinal origin, gastritis, esophagitis. 2. Coronary artery disease. 3. Hypothyroidism. 4. Osteoarthritis. 5. Hyperlipidemia. 6. Hypertension. 7. History of coronary artery disease with single vessel small distal disease. 8. Cellulitis of the left cheek/erysipelas. PLAN: Review of the labs, CT scan reports abnormal findings in the distal esophagus and upper stomach, which may be related to non-distention of the stomach and falls. However, the report, also raises differential diagnosis of malignancy and therefore, this must be pursued with a GI consultation. Review of the labs show her initial CBC to be unremarkable. Chemistries to have slightly elevated BUN of 29. Troponins, CPK, and LDH were all normal. Coags were unremarkable. The patient will be admitted to the medical floor, initially monitored because of her history of coronary artery disease. I will resume some IV fluids as she appears clinically dry. GI consultation with Dr. Mark Sawyer has been requested. Antibiotics for potential infection of the left cheek. We will add proton pump inhibitors and resume her prior medications. Endoscopy may be needed because of the CT scan report. Joshua Graff MD
[2017-05-30] MEDS: Sodium Chloride 0.9% 1,000 ML IV SCH ×3 (01:02→13:30)
--- NOTE | 2017-05-30 01:43 | PN ---
DATE: SUBJECTIVE: The patient is an 86-year-old female with a history of transient atrial fibrillation, hypertension, hypothyroidism, hyperlipidemia, who presented to the emergency room complaining of severe left and right upper quadrant abdominal pain. She states she never experienced such a severe pain. The patient underwent a coronary catheterization with Dr. Curry within the past year and was found to have open coronaries, perhaps just some small vessel coronary disease. It was not felt that this pain was cardiac in origin. She had a hiatal hernia, multiple gallbladder calculi and cardiomegaly on CAT scan. EKG showed sinus bradycardia. Chest x-ray shows COPD, with no acute disease. This morning's laboratory shows the white blood cell count had gone up to 11.4% with 78% granulocytes. Hemoglobin and hematocrit were 12.5 and 37.3. Sodium is 137, potassium 3.5, blood urea nitrogen 19, creatinine 0.9. Her total bilirubin was up to 2.4. Troponins were negative. Dr. Sawyer was called to consult as the pain seemed to be more GI than cardiac. I spoke with Dr. Sawyer earlier today. Since there was no Diaz's punch sign and no right-sided CVA tenderness, no apparent swelling of the gallbladder on CT scan, he felt her pain was largely due to multiple diverticuli of the large colon. Suggested we continue with the Rocephin and follow the patient. When seen this evening, the patient was feeling well. She denied any chest pain or abdominal pain. There was no pain in the upper abdomen on palpation. There was no CVA tenderness. She was awake, alert and oriented. Her lungs were clear and heart was regular. IMPRESSION: So we will continue with the intravenous Rocephin for now and we are also continuing with the patient's Cozaar, aspirin one a day, Lipitor 10 mg, metoprolol 12.5 mg twice a day, Microzide 12.5 mg and Protonix. We are also continuing with Synthroid 50 mcg, tramadol three times a day as needed, and Zofran. Rocephin 1 g daily intravenously. The patient is to be reevaluated in the morning. Jayden Graff MD
[2017-05-30 07:11] LABS: BASO # 0.02 K/mm3 (0.0-2.0); BASO % 0.2 % (0.0-3.0); EOS # 0.1 (0.0-0.7); GRAN # 9.21 (1.4-6.5); GRAN % 78.4 % (50.0-68.0); HEMOGLOBIN 11.9 g/dL (12.0-16.0); LYMPH # 1.5 (1.2-3.4); LYMPH % 12.8 % (22.0-35.0); MEAN CELL VOLUME 95.8 fl (80.0-105.0); MEAN CORPUSCULAR HEMOGLOBIN 31.2 pg (25.0-35.0); MEAN CORPUSCULAR HGB CONC 32.6 g/dl (31.0-37.0); MEAN PLATELET VOLUME 10.4 fl (7.0-11.0); MONO # 0.9 (0.1-0.6); MONO % 7.6 % (1.0-6.0); RBC 3.81 10^6/uL (3.5-6.1); RED CELL DISTRIBUTION WIDTH 12.5 % (11.5-14.5); WHITE BLOOD COUNT 11.7 10^3/ul (4.5-11.0)
[2017-05-30 07:52] LABS: BLOOD UREA NITROGEN 14 mg/dL (7-21); CALCIUM 8.5 mg/dL (8.4-10.5); GFR AFRICAN-AMERICAN > 60; GFR NON-AFRICAN AMERICAN > 60
--- NOTE | 2017-05-30 08:13 | CON ---
DATE: 05/29/2017 HISTORY OF PRESENT ILLNESS: I saw Mrs. Gaspar this morning. She is an 86-year-old white female with a past medical history of increased lipids, coronary artery disease, left renal artery aneurysm, hypertension, admitted to the ER complained about substernal pain as well as abdominal pain. The patient was complaining about discomfort for several hours prior to arrival at the ER. Note that the patient has history of coronary artery disease, had been seen by Dr. Humphrey in the past. Apparently, her cardiac catheterization in 04/2016, revealed nonobstructive coronary artery disease and at that time point, there was paroxysmal atrial fibrillation as well. Interpretation of the EKG was significant for a sinus bradycardia, but no evidence of STEMI on echocardiogram criteria. The patient has not had hematemesis or rectal bleeding. She was somewhat nauseous as well prior to admission. The patient indicates periodic constipation for the past several days prior to admission and constipation was severe. At bedside this morning, the patient indicates epigastric and lower quadrants were the main areas of discomfort. PHYSICAL EXAMINATION: VITAL SIGNS: I reviewed this patient's vital signs. HEENT: Noncontributory. LUNGS: Decreased breath sounds, basilar. HEART: Irregular rhythm. ABDOMEN: Soft, doughy. No tenderness elicited in any quadrant. LABORATORY DATA: I reviewed this patient's laboratory data. White count significant for 11.1 WBCs, H and H 12.5/37.3, platelet count 138. Chemistry indicative of K of 3.5. Bilirubin 2.4. BNP 465. Her LDH in the 600 range. I reviewed this patient's x-ray data which includes an abdominal ultrasound significant for small cysts in the hepatic lobe on the left. No intrahepatic duct dilatation. Gallbladder has multiple stones. Bile duct is not distended. CT scan images as well as interpretation were reviewed. Atelectasis noted at the bases. There is some dilatation of the ascending thoracic aorta, also indicated was a small hiatal hernia with evidence of distal esophagitis. Review of the gallbladder on CT scan noteable moderate distention with multiple stones. Pancreas and spleen within normal limits. Review of the bowel indicates stomach within normal limits. No evidence of small bowel obstruction. There is evidence of extensive diverticulosis. Review of CT scan appears possibly some mild stranding in the area of left lower quadrant. There was significant amount of stool in the colon. ASSESSMENT: This is an 86-year-old white female with a past medical history of hypertension, coronary artery disease, history of severe constipation with complaints of substernal chest and epigastric pain as well as diffuse lower abdominal pain, mostly on the left side. In view of her clinical history and exam today plus after review of the above radiology, etiology quite possibly related to subclinical diverticulitis involving the area of the descending colon and sigmoid. She noted that after initiation of antibiotics as well as analgesics and after bowel movement, especially after the CT, abdominal pain decreased quite substantially and the patient has no abdominal pain as we speak. The patient is currently on pantoprazole which would suffice. Probably also maintain ceftriaxone +/- flagyl at least for a period of 1 week to treat possible subclinical diverticulitis. I reviewed the antireflux precautions with her due to radiology evidence of distal esophagitis. The patient is currently on a liquid diet and tolerating well; however, I would use discretion about advancing to small portions of soft, possibly delay this until tomorrow. Note that I am not affiliated with this patient's health insurance. Mark Sawyer DO, PhD MTDCathy
[2017-05-30] MEDS: Pantoprazole 40 mg EC Tab PO SCH (08:22)
--- NOTE | 2017-05-30 08:32 | CP.PCM.PN ---
Subjective - Date & Time of Evaluation Date of Evaluation: 05/30/17 Time of Evaluation: 06:45 - Subjective Subjective: Seen and examined by me and Dr. Humphrey Reason for consult and follow up: Cardiac evaluation,Chest pain most likely secondary to abdominal pain. cardiac cath 04/2016- non-obstructive coronary artery disease, Paroxysmal atrial fibrillation, questionable history of non- STEMI, Subjective: denies chest pain, denies shortness of breath, feels okay Objective - Vital Signs/Intake and Output Vital Signs (last 24 hours): Temp Pulse Resp BP Pulse Ox 99.6 F 78 20 157/74 H 95 05/30/17 06:00 05/30/17 08:22 05/30/17 06:00 05/30/17 08:22 05/30/17 06:00 Intake and Output: 05/30/17 05/30/17 06:59 18:59 Intake Total 1860 Output Total 250 Balance 1610 - Medications Medications: Current Medications Acetaminophen (Tylenol 325mg Tab) 650 mg PO Q6H PRN PRN Reason: Fever >100.4 F Last Admin: 05/29/17 05:51 Dose: 650 mg Acetaminophen (Tylenol 325mg Tab) 650 mg PO Q6 PRN PRN Reason: Pain, Mild (1-3) Last Admin: 05/29/17 14:24 Dose: 650 mg Aspirin (Ecotrin) 81 mg PO DAILY [facility] Last Admin: 05/29/17 18:41 Dose: 81 mg Atorvastatin Calcium (Lipitor) 10 mg PO DIN [facility] Last Admin: 05/29/17 18:40 Dose: 10 mg Hydrochlorothiazide (Microzide) 12.5 mg PO ACBD [facility] Last Admin: 05/30/17 08:22 Dose: 12.5 mg Ceftriaxone Sodium (Rocephin 1 Gram Ivpb) 1 gm in 100 mls @ 100 mls/hr IV DAILY [facility] PRN Reason: Protocol Stop: 06/01/17 10:59 Last Admin: 05/29/17 10:47 Dose: 100 mls/hr Sodium Chloride (Sodium Chloride 0.9%) 1,000 mls @ 100 mls/hr IV .Q10H [facility] Last Admin: 05/30/17 01:02 Dose: 100 mls/hr Levothyroxine Sodium (Synthroid) 50 mcg PO DAILY [facility] Last Admin: 05/29/17 10:45 Dose: 50 mcg Losartan Potassium (Cozaar) 50 mg PO ACBD [facility] Last Admin: 05/30/17 08:22 Dose: 50 mg Metoprolol Tartrate (Lopressor) 12.5 mg PO BRKDIN [facility] Last Admin: 05/30/17 08:22 Dose: 12.5 mg Ondansetron HCl (Zofran Inj) 4 mg IVP Q6H PRN PRN Reason: Nausea/Vomiting Pantoprazole Sodium (Protonix Ec Tab) 40 mg PO ACB [facility] Last Admin: 05/30/17 08:22 Dose: 40 mg Tramadol HCl (Ultram) 50 mg PO TID [facility] Last Admin: 05/29/17 18:47 Dose: 50 mg - Labs Labs: 05/30/17 06:30 05/30/17 06:30 PT 12.4 SECONDS (9.4-12.5) 05/28/17 05:43 INR 1.08 (0.93-1.08) 05/28/17 05:43 - Constitutional Appears: No Acute Distress - Head Exam Head Exam: NORMAL INSPECTION - Eye Exam Eye Exam: Normal appearance Pupil Exam: NORMAL ACCOMODATION - ENT Exam ENT Exam: Mucous Membranes Moist, Normal Exam - Neck Exam Neck Exam: Normal Inspection - Respiratory Exam Respiratory Exam: Clear to Ausculation Bilateral, NORMAL BREATHING PATTERN - Cardiovascular Exam Cardiovascular Exam: REGULAR RHYTHM, +S1, +S2 Additional comments: NSR 60's-70's - GI/Abdominal Exam GI & Abdominal Exam: Soft, Normal Bowel Sounds - Extremities Exam Extremities Exam: Normal Capillary Refill Additional comments: 2+ pedal edema - Neurological Exam Neurological Exam: Alert, Awake, Oriented x3 - Psychiatric Exam Psychiatric exam: Normal Affect, Normal Mood - Skin Skin Exam: Dry, Intact, Normal Color, Warm Assessment and Plan - Assessment and Plan (Free Text) Assessment: IMPRESSION: Chest pain most likely secondary to abdominal pain. cardiac cath 2016- non-obstructive coronary artery disease, Paroxysmal atrial fibrillation, questionable history of non- STEMI, history of obesity,history of hyperthyroidism. Former patient of Dr. Curry however due to insurance issues/ coverage ( Dr. Curry does not participate in her insurance) switch to Dr. Humphrey. Plan: Plan: Stable cardiac status Stable heart rate and blood pressure ECHO result 05/28/17 -normal LV function- 55-60%,trace aortic regurgitation, aortic sclerosis versus mild aortic sclerosis, mild mitral regurgitation, trace tricuspid and pulmonic regurgitation. no pericardial effusion. Denies chest pain/abdominal pain. Ongoing GI work up and evaluation/consult On ASA 81 mg daily, Lipitor 10 mg daily,Microzide 12.5 mg daily, Cozaar 50 mg daily, lopressor 12.5 mg daily Continue current medication Continue current treatment Will follow up Plan and treatment discussed with Dr. Humphrey
[2017-05-30] MEDS: Levothyroxine 50 MCG TAB PO SCH (10:13)
[2017-05-30] MEDS: cefTRIAXone 1 gm 1 GM/100 ML BAG IV SCH (10:13)
--- NOTE | 2017-05-30 11:39 | PN ---
DATE: 05/30/2017 SUBJECTIVE: I saw Ms. Gaspar this morning. She is an 86-year-old white female with complaints of nausea, vomiting, abdominal distention and severe abdominal pain. Patient has made progress on current therapeutic regimen since time of admission. She is currently on antibiotic therapy in the form of ceftriaxone, consider addition of metronidazole. At bedside this morning, patient indicates she still has a tightness noted in her abdomen especially around the umbilicus as well in the left lower quadrant. Periodic nausea still exists. The overall symptoms improved relative to time of admission. PHYSICAL EXAMINATION: VITAL SIGNS: I reviewed this patient's vital signs. HEENT: Noncontributory. LUNGS: Decreased breath sounds, basilar. HEART: Irregular rhythm. ABDOMEN: Soft. No tenderness elicited in the right upper quadrant and right lower quadrant. There is some discomfort to palpation at periumbilical area as well as the left lower quadrant and the left paraumbilical. LABORATORY DATA: Pending for today. Reviewed the progress notes of Drs. Donohue as well as Dr. Graff. OVERALL ASSESSMENT: This is an 86-year-old white female with complaints of nausea, vomiting, abdominal pain, improved on current regimen. Patient has been afebrile. The case was reviewed with the nurse on the unit. Would suggest continuing the ceftriaxone for presumptive diagnosis of subclinical diverticulitis. Possibly add flgyl. Note that she does have evidence by CT criteria of distal esophagitis. This may possibly be contributing a nausea component as well. The dietary issues would consist of liquid diet for both breakfast and lunch and possibly if nausea and abdominal pain permit, may advance to very small portions of soft today. She has significant constipation issues and I discussed the issue of using MiraLax and Colace on a prophylactic basis. Mark Sawyer DO, PhD DARIELA
--- NOTE | 2017-05-31 03:02 | PN ---
DATE: 05/30/2017 The patient was seen this morning in room 271, bed 2. She is awake, alert, and comfortable in bed, in no acute distress. Erythema on the left cheek has resolved completely. She appears to be responding to current treatment with antibiotics and proton pump inhibitors. Abdominal symptoms have subsided almost completely. Differential diagnoses are cholelithiasis, seen on CAT scan with possible cholecystitis was entertained as well as the possibility of diverticulitis. Abnormal findings on the stomach and distal esophagus noted on CT scan were addressed by GI. We will discontinue IV fluids. Continue proton pump inhibitors, increase diet. We will discuss EGD with GI and consider discharge to home soon. Joshua Graff MD MTDD
[2017-05-31 07:32] LABS: BASO # 0.03 K/mm3 (0.0-2.0); BASO % 0.4 % (0.0-3.0); EOS # 0.2 (0.0-0.7); EOS % 2.8 % (1.5-5.0); GRAN # 5.3 (1.4-6.5); GRAN % 67.5 % (50.0-68.0); LYMPH # 1.5 (1.2-3.4); LYMPH % 19.5 % (22.0-35.0); MEAN CELL VOLUME 94.6 fl (80.0-105.0); MEAN CORPUSCULAR HEMOGLOBIN 31.6 pg (25.0-35.0); MEAN CORPUSCULAR HGB CONC 33.4 g/dl (31.0-37.0); MEAN PLATELET VOLUME 10.2 fl (7.0-11.0); MONO # 0.8 (0.1-0.6); MONO % 9.8 % (1.0-6.0); RBC 4.11 10^6/uL (3.5-6.1); RED CELL DISTRIBUTION WIDTH 12.2 % (11.5-14.5); WHITE BLOOD COUNT 7.9 10^3/ul (4.5-11.0)
[2017-05-31 07:44] LABS: BLOOD UREA NITROGEN 14 mg/dL (7-21); CALCIUM 9.3 mg/dL (8.4-10.5); GFR AFRICAN-AMERICAN > 60; GFR NON-AFRICAN AMERICAN 60
--- NOTE | 2017-05-31 08:04 | CP.PCM.PN ---
Subjective - Date & Time of Evaluation Date of Evaluation: 05/31/17 Time of Evaluation: 07:00 - Subjective Subjective: Seen and examined by me and Dr. Humphrey Reason for consult and follow up: Cardiac evaluation, non-obstructive coronary artery disease, Paroxysmal atrial fibrillation, questionable history of non- STEMI, Subjective: sleeping but easily awaken, denies chest pain, denies shortness of breath, Objective - Vital Signs/Intake and Output Vital Signs (last 24 hours): Temp Pulse Resp BP Pulse Ox 99 F 69 20 171/90 H 96 05/30/17 21:00 05/30/17 21:00 05/30/17 21:00 05/30/17 21:00 05/30/17 21:00 Intake and Output: 05/31/17 05/31/17 06:59 18:59 Intake Total 360 Balance 360 - Medications Medications: Current Medications Acetaminophen (Tylenol 325mg Tab) 650 mg PO Q6H PRN PRN Reason: Fever >100.4 F Last Admin: 05/29/17 05:51 Dose: 650 mg Acetaminophen (Tylenol 325mg Tab) 650 mg PO Q6 PRN PRN Reason: Pain, Mild (1-3) Last Admin: 05/29/17 14:24 Dose: 650 mg Aspirin (Ecotrin) 81 mg PO DAILY [facility] Last Admin: 05/30/17 10:13 Dose: 81 mg Atorvastatin Calcium (Lipitor) 10 mg PO DIN [facility] Last Admin: 05/30/17 17:23 Dose: 10 mg Hydrochlorothiazide (Microzide) 12.5 mg PO ACBD [facility] Last Admin: 05/30/17 17:24 Dose: 12.5 mg Ceftriaxone Sodium (Rocephin 1 Gram Ivpb) 1 gm in 100 mls @ 100 mls/hr IV DAILY [facility] PRN Reason: Protocol Stop: 06/01/17 10:59 Last Admin: 05/30/17 10:13 Dose: 100 mls/hr Lactobacillus Acidophilus (Bacid Acidophilus) 1 cap PO BID [facility] Levothyroxine Sodium (Synthroid) 50 mcg PO DAILY [facility] Last Admin: 05/30/17 10:13 Dose: 50 mcg Losartan Potassium (Cozaar) 50 mg PO ACBD [facility] Last Admin: 05/30/17 17:24 Dose: 50 mg Metoprolol Tartrate (Lopressor) 12.5 mg PO BRKDIN [facility] Last Admin: 05/30/17 17:23 Dose: 12.5 mg Ondansetron HCl (Zofran Inj) 4 mg IVP Q6H PRN PRN Reason: Nausea/Vomiting Pantoprazole Sodium (Protonix Ec Tab) 40 mg PO ACB [facility] Last Admin: 05/30/17 08:22 Dose: 40 mg Tramadol HCl (Ultram) 50 mg PO TID [facility] Last Admin: 05/30/17 17:23 Dose: 50 mg - Labs Labs: 05/31/17 07:00 05/31/17 07:00 PT 12.4 SECONDS (9.4-12.5) 05/28/17 05:43 INR 1.08 (0.93-1.08) 05/28/17 05:43 - Constitutional Appears: No Acute Distress - Eye Exam Pupil Exam: NORMAL ACCOMODATION - ENT Exam ENT Exam: Mucous Membranes Dry, Normal Exam - Respiratory Exam Respiratory Exam: Clear to Ausculation Bilateral, NORMAL BREATHING PATTERN - Cardiovascular Exam Cardiovascular Exam: +S1, +S2 Additional comments: no JVD - GI/Abdominal Exam GI & Abdominal Exam: Soft, Normal Bowel Sounds - Extremities Exam Extremities Exam: Full ROM, Normal Capillary Refill - Neurological Exam Neurological Exam: Alert, Awake, Oriented x3 - Psychiatric Exam Psychiatric exam: Normal Affect, Normal Mood - Skin Skin Exam: Dry, Intact, Normal Color, Warm Assessment and Plan - Assessment and Plan (Free Text) Assessment: IMPRESSION: Chest pain most likely secondary to abdominal pain. cardiac cath 2016- non-obstructive coronary artery disease, Paroxysmal atrial fibrillation, questionable history of non- STEMI, history of obesity,history of hyperthyroidism. Plan: GI work up in progress Stable cardiac status Stable heart rate and blood pressure On ASA 81 mg daily, Lipitor 10 mg daily,Microzide 12.5 mg daily, Cozaar 50 mg daily, Lopressor 12.5 mg daily Continue current medication Continue current treatment Will follow up Plan and treatment discussed with Dr. Humphrey
[2017-05-31] MEDS: Pantoprazole 40 mg EC Tab PO SCH (08:57)
[2017-05-31 09:01] VITALS: BP 156/76; PULSE 73
[2017-05-31 09:09] VITALS: RESP 18; TEMP 97.4; O2SAT 94
[2017-05-31] MEDS ORDERED: Lactobacillus Acidophilus 500 MU Cap PO SCH (10:00)
--- NOTE | 2017-05-31 10:34 | PN ---
DATE: 05/31/2017 SUBJECTIVE: I saw Ms. Gaspar this morning. She is an 86-year-old white female with complaints of nausea, vomiting, abdominal distention and severe abdominal pain, especially in the epigastric area and left lower quadrant. Patient indicated today significant improvement with the abdomen being less distended, but still notes some tightness in the lower area of her abdomen. She is passing flatus, but no bowel movements. Patient denies nausea and vomiting. PHYSICAL EXAMINATION: VITAL SIGNS: I reviewed this patient's vital signs. HEENT: Noncontributory. LUNGS: Decreased breath sounds, basilar. HEART: Irregular rhythm. ABDOMEN: Soft, less distended. There is some mild discomfort noted in the left lower quadrant to palpation at periumbilical area. She still has some fullness noted in the left paraumbilical in the left lower quadrant, but the discomfort has significantly decreased relative to the day of admission. LABORATORY DATA: Including the H&H from yesterday. Other labs from yesterday, noncontributory. I reviewed the notes of Dr. Donohue as well as Dr. Joshua Graff. OVERALL ASSESSMENT: This is an 86-year-old white female presented with complaints of severe epigastric discomfort, substernal chest discomfort as well as left lower quadrant pain. Patient is improved on antibiotic therapy in the form of Rocephin on a daily basis. Clinical presentation also consistent with probably gastritis, esophagitis, resulting from a subclinical diverticulitis involving descending colon and sigmoid. Noted CT appearance of extensive diverticulosis in the distal part of the colon. Suggest the patient is to be discharged today. Consider sending her home on a regimen consisting of Augmentin plus metronidazole for at least another 7 days or so. She will be followed up in the office of Dr. Lewis and Dr. Jayden Graff. I reviewed the dietary issues especially in the context of diverticulitis, which would consist of a small portion of low-residue diet during the antibiotic therapy, subsequently increased to high fiber after antibiotics are completed. I reviewed antireflux precautions and suggestion of an upper endoscopy as an outpatient based on CT criteria. I will sign off the case today. Mark Sawyer DO, PhD DARIELA
[2017-05-31] MEDS: Levothyroxine 50 MCG TAB PO SCH (11:16)
[2017-05-31] MEDS: cefTRIAXone 1 gm 1 GM/100 ML BAG IV SCH (11:17)
--- NOTE | 2017-06-01 05:26 | DS ---
HISTORY OF PRESENT ILLNESS: This is a delightful 86-year-old woman, retired nurse from [employer], with a history of coronary artery disease and had a cardiac catheterization approximately 1 year ago with small distal vessel disease, not amenable to angioplasty or stenting. She was home in her usual state of health with no change in her diet or activity level, and she was awaken from her sleep in the administrative asst hours on the day of admission with severe pain across the upper abdomen. She was seen in the emergency room, evaluated, and admitted because of her history of coronary artery disease. She was seen by her case manager specialist, Dr. Humphrey, who she usually had visited in the office as an outpatient months earlier. It was felt to be mostly GI in origin. CT scan of the abdomen done in the emergency room showed thickening of the distal esophagus near the stomach, raising question of esophagitis versus other esophageal pathology. She is followed by Dr. Mark Sawyer, her patent solicitor. EGD was entertained, was felt to be best on as an outpatient. She was treated for esophagitis with proton-pump inhibitor and Carafate. On admission, there was also noted some marked left facial and cheek erythema and swelling. There was concern for cellulitis, so she was started on antibiotics. Given the differential diagnosis of her abdominal pain and in view of the cholelithiasis seen on the CT scan, mild cholecystitis was entertained as well as mild subclinical diverticulitis based on the multitude of diverticula seen on CT scan. With antibiotics, proton-pump inhibitors and oral Carafate, she improved dramatically over the following days, was comfortable, out of bed, ambulatory, and looking forward to discharge to home. Prescription was called into her drug store for omeprazole and Carafate, cipro and flagyl. She will follow up with me in the office in 1 week. I explained again the importance of proceeding with the endoscopy, but apparently there is insurance issues at hand, although she is 86 years old, she has some sort of private commercial insurance and that may have an effect on choosing her patent solicitor at the facility where she will have the endoscopy performed. Nonetheless, she is comfortable and ready for discharge to home. FINAL DISCHARGE DIAGNOSES: 1. Esophagitis. 2. Cholelithiasis. 3. Mild cholecystitis. 4. History of coronary artery disease. PLAN: Prescriptions called into the drug store for Cipro, Flagyl, omeprazole, and Carafate. We will see the patient in the office in 1 week. Joshua Graff MD MTDCathy
== END 2017-05-31 15:08 | disposition home or self-care (01) | DRG 392 ==
LOC: ED 04:58 → ERH 06:29 → 3RSO 10:29 → 2RSO 15:46 → 3RSO 05-30 15:17
PROVIDERS: ADMIT Internal Medicine; ATTEND Internal Medicine
DX: K20.9 Esophagitis, unspecified (principal); K80.10 Calculus of gallbladder with chronic cholecystitis without obstruction; L03.211 Cellulitis of face; A46 Erysipelas; I25.10 Atherosclerotic heart disease of native coronary artery without angina pectoris; E03.9 Hypothyroidism, unspecified; E78.5 Hyperlipidemia, unspecified; I48.0 Paroxysmal atrial fibrillation; K59.00 Constipation, unspecified; J44.9 Chronic obstructive pulmonary disease, unspecified; I10 Essential (primary) hypertension; Z98.42 Cataract extraction status, left eye